=== PATIENT | male | born 1990 | race Two or more races ===

== ENCOUNTER 2025-04-03 23:26 | Inpatient (IN) | payer OTHER ==
[~2025-04-03] VITALS: Ht 180.3 cm; Wt 74.5 kg
[2025-04-04 00:04] LABS: PLATELET COUNT (AUTO) 194 K/uL (150-450); RED BLOOD CELL COUNT(AUTO) 5.15 MIL/uL (4.50-5.90); RED CELL DISTRIBUTION WIDTH 13.0 % (11.5-14.5); WHITE BLOOD COUNT (AUTO) 8.1 K/uL (4.5-11.0)
[2025-04-04 00:17] LABS: CALCIUM, TOTAL 9.4 mg/dL (8.8-10.5); GLUCOSE,RANDOM 94 mg/dL (70-110); SODIUM SERUM 138 mmol/L (136-145); UREA NITROGEN, BLOOD 15 mg/dL (7-18)
[2025-04-04 00:23] LABS: ALCOHOL, BLOOD (SERUM) < 3 mg/dL (0-10); ASPARTATE AMINOTRANSFERASE 25 U/L (15-37); CREATININE 1.02 mg/dL (0.60-1.30); GLOMERULAR FILTR. RATE CALC > 60 mL/min (>60); TOTAL PROTEIN, SERUM 7.8 g/dL (6.4-8.2)
[2025-04-04 00:27] LABS: TROPONIN I-HIGH SENSITIVITY 22 ng/L (<76)
[2025-04-04 01:15] LABS: COVID AG,FIA SOURCE NASAL SWAB
[2025-04-04 01:21] LABS: SARS-COV2 (COVID) ANTIGEN,FIA Negative (Negative)
[2025-04-04 02:02] LABS: APPEARANCE,URINE CLEAR (CLEAR); GLUCOSE, URINE (UA) NEGATIVE (NEGATIVE); LEUKOCYTE ESTERASE ,URINE NEGATIVE (NEGATIVE); NITRATE,URINE NEGATIVE (NEGATIVE); OCCULT BLOOD,URINE NEGATIVE (NEGATIVE); PH,URINE DRUG SCREEN 6.0 (5.0-8.0); SPECIFIC GRAVITIY, URINE 1.026 (1.003-1.030)
[2025-04-04 02:09] LABS: ALCOHOL, URINE DRUG SCREEN NEGATIVE (NEGATIVE); AMPHET/METH SCREEN,URINE NEGATIVE (NEGATIVE); BARBITURATE SCREEN, URINE NEGATIVE (NEGATIVE); CANNABINOID SCREEN,URINE NEGATIVE (NEGATIVE); COCAINE SCREEN,URINE NEGATIVE (NEGATIVE); METHADONE SCREEN, URINE NEGATIVE (NEGATIVE)
[2025-04-04 06:19] VITALS: BP 121/85; PULSE 58; RESP 18; TEMP 97.5; O2SAT 99
[2025-04-04 08:00] VITALS: BP 112/94; PULSE 72; RESP 19; TEMP 97.5; O2SAT 100
[2025-04-04] MEDS ORDERED: MAGNESIUM HYDROXIDE SUSPENSION 30 ML UDCUP PO PRN (09:00)
[2025-04-04] MEDS: SERTRALINE HCL 50 MG TABLET PO SCH (15:43)
[2025-04-04 20:17] VITALS: BP 110/78; PULSE 66; RESP 18; TEMP 98.1; O2SAT 98
[2025-04-04] MEDS: ZOLPIDEM TARTRATE 5 MG TABLET PO PRN (20:20)
[2025-04-05 06:11] VITALS: BP 110/88; PULSE 66; RESP 18; TEMP 98.1; O2SAT 98
[2025-04-05 08:17] VITALS: BP 104/72; PULSE 63; RESP 18; TEMP 98.7; O2SAT 99
[2025-04-05 12:33] LABS: APPEARANCE,URINE CLEAR (CLEAR); GLUCOSE, URINE (UA) NEGATIVE (NEGATIVE); LEUKOCYTE ESTERASE ,URINE NEGATIVE (NEGATIVE); NITRATE,URINE NEGATIVE (NEGATIVE); OCCULT BLOOD,URINE NEGATIVE (NEGATIVE); SPECIFIC GRAVITIY, URINE 1.011 (1.003-1.030)
[2025-04-05 20:26] VITALS: BP 116/80; PULSE 62; RESP 19; TEMP 98.6; O2SAT 99
[2025-04-06 05:20] VITALS: BP 102/71; PULSE 69; RESP 18; TEMP 97.9; O2SAT 95
[2025-04-06 08:40] VITALS: BP 121/87; PULSE 67; RESP 18; TEMP 97.5; O2SAT 98
[2025-04-06 20:15] VITALS: BP 112/70; PULSE 62; RESP 18; TEMP 98.4; O2SAT 98
[2025-04-07 05:30] VITALS: BP 104/77; PULSE 59; RESP 18; TEMP 97.5; O2SAT 97
[2025-04-07 09:05] VITALS: BP 136/90; PULSE 60; RESP 18; TEMP 98; O2SAT 98
[2025-04-07 20:00] VITALS: BP 125/75; PULSE 70; RESP 18; TEMP 98.1; O2SAT 97
[2025-04-08 04:00] VITALS: BP 113/69; PULSE 65; RESP 18; TEMP 98; O2SAT 98
[2025-04-08] MEDS: SERTRALINE HCL 100 MG TABLET PO SCH (08:33)
[2025-04-08] MEDS: ACETAMINOPHEN 325 MG TABLET PO PRN (08:34)
[2025-04-08 08:39] VITALS: BP 115/82; PULSE 58; RESP 18; TEMP 97.5; O2SAT 100
[2025-04-08] MEDS ORDERED: RISP-31 PO (15:01)
[2025-04-08] MEDS ORDERED: SERT-162 PO (15:01)
[2025-04-08] MEDS ORDERED: ACET-2247 PO (15:03)
[2025-04-08] MEDS ORDERED: MAGN-169 PO (15:04)
== END 2025-04-08 20:45 | DRG 885 ==
LOC: EMS 23:35 → EDH 04-04 02:12 → 6N 04-04 06:05
PROVIDERS: ADMIT Internal Medicine; ATTEND Internal Medicine
PROC: GZ52ZZZ Individual Psychotherapy, Cognitive (ICD-10-PCS; principal; 2025-04-07)
DX: F25.1 Schizoaffective disorder, depressive type (principal); R45.851 Suicidal ideations; R05.9 Cough, unspecified; Z20.822 Contact with and (suspected) exposure to COVID-19; Z79.899 Other long term (current) drug therapy
CPT/HCPCS: 71045; 80048; 80076; 80307; 81003; 84484; 85025; 93005; 99285; G0480; 36415-L1; 36415-TC